=== PATIENT | male | born 1965 | race Caucasian/White ===

== ENCOUNTER 2024-01-10 07:23 | Day surgery (SDC) | payer OTHER ==
[2024-01-10] MEDS: Sodium Chloride 0.9% 1,000 ML IV SCH (08:19)
[2024-01-10] MEDS ORDERED: Propofol 200 MG/20 ML SDV ONE (08:27)
[2024-01-10] MEDS ORDERED: fentaNYL 50 MCG/ML SDV ONE (08:27)
[2024-01-10] MEDS ORDERED: Midazolam 1 MG/ML 2 ML SDV ONE (08:27)
== END 2024-01-10 10:23 | disposition home or self-care (01) ==
LOC: JP.SDS 07:23
PROVIDERS: ATTEND Surgery
DX: Z12.11 Encounter for screening for malignant neoplasm of colon (principal); I10 Essential (primary) hypertension; E66.9 Obesity, unspecified
CPT/HCPCS: G0121; J2250; J2704; J3010; J7030

== ENCOUNTER 2024-04-10 18:42 | Emergency (ER) | payer OTHER ==
[2024-04-10 19:58] LABS: CORONAVIRUS COVID-19 NAA NEGATIVE (NEGATIVE); INFLUENZA A NAA POSITIVE (NEGATIVE); INFLUENZA B NAA NEGATIVE (NEGATIVE); RESPIRATORY SYNCYTIAL VIR NAA NEGATIVE (NEGATIVE)
== END 2024-04-10 21:13 | disposition home or self-care (01) ==
LOC: JP.ED 18:42
DX: J10.1 Influenza due to other identified influenza virus with other respiratory manifestations (principal); I10 Essential (primary) hypertension; Z86.16 Personal history of COVID-19; Z79.899 Other long term (current) drug therapy
CPT/HCPCS: 0241U; 99283; 99284